=== PATIENT | male | born 1975 | race African-American/Black ===

== ENCOUNTER 2024-04-16 17:38 | Emergency (ER) | payer MEDICAID ==
[~2024-04-16] VITALS: Ht 185.4 cm; Wt 93.0 kg
[2024-04-16 17:41] VITALS: BP 199/128; TEMP 99.4
[2024-04-16] MEDS ORDERED: ACET-2708 MT (21:45)
[2024-04-16] MEDS ORDERED: AZIT500T8 MT (21:45)
[2024-04-17] MEDS: ACETAMINOPHEN 325MG TABLET PO ONE (00:18)
[2024-04-17] MEDS ORDERED: ALBU18HF2 IH (00:21)
[2024-04-17 00:24] LABS: CHLORIDE 105 mEq/L (98-107); POTASSIUM 4.3 mEq/L (3.5-5.1); SODIUM 140 mEq/L (136-145)
[2024-04-17 00:25] LABS: CALCIUM 9.4 mg/dL (8.7-10.4); CARBON DIOXIDE 30 mEq/L (21-32)
[2024-04-17] MEDS: IPRATROPIUM/ALBUTEROL 0.5-3(2.5)MG/3ML NEB HHN ONE (00:28)
[2024-04-17 00:29] LABS: CREATININE 1.2 mg/dL (0.6-1.3)
[2024-04-17 00:30] LABS: GLUCOSE 118 mg/dL (70-105); UREA NITROGEN BLOOD 13 mg/dL (9-23)
[2024-04-17 00:31] VITALS: PULSE 85; RESP 22; O2SAT 95
[2024-04-17 00:32] LABS: ALANINE AMINOTRANSFERASE 30 IU/L (10-49); ALBUMIN 4.2 g/dL (3.2-4.8); ASPARTATE AMINOTRANSFERASE 59 IU/L (<34); BILIRUBIN TOTAL 0.5 mg/dL (0.1-1.0); PROTEIN TOTAL 7.4 g/dL (6.0-8.3)
[2024-04-17 01:32] LABS: BASOPHILS % 0.4 % (0.0-2.0); EOSINOPHILS % 2.5 % (0.0-5.0); HEMATOCRIT. 38.9 % (42.0-52.0); HEMOGLOBIN. 13.1 g/dL (14.0-18.0); LYMPHOCYTES % 4.4 % (20.0-50.0); MEAN CORPUSCULAR HEMOGLOBIN 31.4 pg (28.0-32.0); MEAN CORPUSCULAR HGB CONC 33.8 g/dL (31.0-37.0); MEAN CORPUSCULAR VOLUME 93.2 fL (80.0-94.0); MEAN PLATELET VOLUME 8.3 fl (7.4-10.4); MONOCYTES % 9.7 % (2.0-8.0); PLATELET 236 x1000/uL (130-400); RED BLOOD CELL COUNT 4.17 mill/uL (4.7-6.1); RED CELL DISTRIBUTION WIDTH 13.9 % (11.6-14.6); WHITE BLOOD COUNT 8.9 x1000/uL (4.5-11.0)
[2024-04-17 01:36] LABS: DIFFERENTIAL COMMENT 1
[2024-04-18] MEDS ORDERED: ALBU90AE INH (11:36)
[2024-04-18] MEDS ORDERED: NICO-645 TP (11:36)
[2024-04-18] MEDS ORDERED: FLUT1DIS3 INH (11:36)
[2024-04-18] MEDS ORDERED: METH4TAB95 MT (11:36)
[2024-04-18] MEDS ORDERED: AZIT250T12 PO (11:37)
== END 2024-04-17 00:59 | disposition home or self-care (01) ==
LOC: ER 17:38
DX: B34.9 Viral infection, unspecified (principal); I10 Essential (primary) hypertension; J45.901 Unspecified asthma with (acute) exacerbation; Z98.890 Other specified postprocedural states
CPT/HCPCS: 80053; 85025; 36415; 71045; 99284; 94640; Z7610 ×3